=== PATIENT | female | born 1955 | race Caucasian/White ===

== ENCOUNTER 2017-08-16 21:30 | Inpatient (IN) | payer MEDICARE, MEDICAID ==
[~2017-08-16] VITALS: Ht 170.2 cm; Wt 90.4 kg
[~2017-08-16 21:30] MED LIST: DULO60CA44 PO; METO25 PO; MODA200T16 PO; SIMV-260 PO; TRAZ-144 PO; ZOLP10TA7 PO
[2017-08-16] MEDS ORDERED: METF500T4 PO (22:04)
[2017-08-16] MEDS ORDERED: LISI-660 PO (22:04)
[2017-08-16] MEDS ORDERED: CARV12 PO (22:04)
[2017-08-16 23:22] LABS: GLUCOSE,POINT OF CARE 151 MG/DL (70-110)
[2017-08-16 23:39] LABS: BASOPHILS % (AUTO) 0.3 % (0.0-2.0); EOSINOPHILS % (AUTO) 3.8 % (1.0-6.0); HEMOGLOBIN 13.6 g/dL (12.0-16.0); LYMPHOCYTES # (AUTO) 2.7 K/uL (1.0-4.8); LYMPHOCYTES % (AUTO) 24.1 % (22.0-44.0); MEAN CORPUSCULAR HEMOGLOBIN 29.8 pg (26.0-34.0); MEAN CORPUSCULAR HGB CONC 33.2 G/dL (31.0-37.0); MEAN CORPUSCULAR VOLUME 90 fL (80-100); MONOCYTES # (AUTO) 0.5 K/uL (0.1-1.0); MONOCYTES % (AUTO) 4.5 % (2.0-9.0); NEUTROPHILS # (AUTO) 7.6 K/uL (1.8-7.7); NEUTROPHILS % (AUTO) 67.3 % (40.0-70.0); PLATELET COUNT (AUTO) 438 K/uL (150-450); RED BLOOD CELL COUNT(AUTO) 4.57 MIL/uL (4.00-5.20); RED CELL DISTRIBUTION WIDTH 14.3 % (11.5-14.5)
[2017-08-16 23:52] LABS: ANION GAP 7 mmol/L (8-16); CALCIUM, TOTAL 9.2 mg/dL (8.8-10.5); CARBON DIOXIDE 32 mmol/L (22-29); CHLORIDE 100 mmol/L (98-107); CREATININE 1.27 mg/dL (0.60-1.30); GLOMERULAR FILTR. RATE CALC 43 mL/min (>60); GLUCOSE,RANDOM 144 mg/dL (70-110); POTASSIUM 4.3 mmol/L (3.5-5.1); SODIUM SERUM 139 mmol/L (136-145); UREA NITROGEN, BLOOD 29 mg/dL (7-18)
[2017-08-16 23:56] LABS: ALANINE AMINOTRANSFERASE 33 U/L (12-78); ALKALINE PHOSPHATASE 108 U/L (46-116); ASPARTATE AMINOTRANSFERASE 20 U/L (15-37); BILIRUBIN,TOTAL 0.3 mg/dL (0.1-1.0); TOTAL PROTEIN, SERUM 8.1 g/dL (6.4-8.2)
[2017-08-17] MEDS ORDERED: HALOPERIDOL LACTATE 5 MG/ML VIAL IM ONE (02:00)
[2017-08-17] MEDS ORDERED: DiphenhydrAMINE HCL 50 MG/ML VIAL IM ONE (02:00)
[2017-08-17] MEDS ORDERED: LORazepam 2 MG/ML VIAL IM ONE (02:00)
[2017-08-17 05:32] LABS: AMPHET/METH SCREEN,URINE NEGATIVE (NEGATIVE); BARBITURATE SCREEN, URINE NEGATIVE (NEGATIVE); BENZODIAZEPINES SCREEN,URINE NEGATIVE (NEGATIVE); CANNABINOID SCREEN,URINE NEGATIVE (NEGATIVE); COCAINE SCREEN,URINE NEGATIVE (NEGATIVE); METHADONE SCREEN, URINE NEGATIVE (NEGATIVE); OPIATE SCREEN,URINE NEGATIVE (NEGATIVE)
[2017-08-17 05:33] LABS: PHENCYCLIDINE SCREEN,URINE NEGATIVE (NEGATIVE)
[2017-08-17] MEDS ORDERED: LORazepam 2 MG TABLET PO PRN (09:30)
[2017-08-17] MEDS ORDERED: ZOLPIDEM TARTRATE 10 MG TABLET PO PRN (09:30)
[2017-08-17] MEDS ORDERED: HALOPERIDOL 5 MG TABLET PO PRN ×2 (09:30→09:45)
[2017-08-17 10:14] LABS: CHOL/HDL RATIO 7.1 (3.9-5.7); FREE T4 (FREE THYROXINE) 0.9 ng/dL (0.76-1.46); THYROID STIMULATING HORMONE 1.96 uIU/mL (0.36-3.74)
[2017-08-17 11:13] LABS: GLUCOMETER DEV NAME(LOC) BV2S; GLUCOSE,POINT OF CARE 118 MG/DL (70-110)
[2017-08-17 11:22] VITALS: BP 121/84
[2017-08-17] MEDS ORDERED: INFLUENZA VIRUS VACCINE QVS 2017-18 (3YR+)/PF 60 MCG/0.5 ML SYRINGE IM ONE (12:15)
[2017-08-17] MEDS ORDERED: PNEUMOCOCCAL VACCINE POLYVALENT 0.5 ML VIAL [PPSV23] IM ONE (12:15)
[2017-08-17 16:30] VITALS: BP 119/72
[2017-08-17] MEDS: LISINOPRIL 5 MG TABLET PO SCH (16:51)
[2017-08-17] MEDS: MetFORMIN HCL 500 MG TABLET PO SCH (16:51)
[2017-08-17] MEDS: CARVEDILOL 12.5 MG TABLET PO SCH (16:51)
[2017-08-17] MEDS: BACITRACIN 28.4 GM OINTMENT TP SCH (16:54)
[2017-08-17] MEDS ORDERED: IBUPROFEN 400 MG TABLET PO PRN (20:45)
[2017-08-17] MEDS: ZOLPIDEM TARTRATE 10 MG TABLET PO PRN (21:38)
[2017-08-18] VITALS (9 sets, daily range): BP systolic 106–129; BP diastolic 60–86
[2017-08-18] MEDS: MetFORMIN HCL 500 MG TABLET PO SCH ×2 (06:38→16:35)
[2017-08-18] MEDS ORDERED: MetFORMIN HCL 500 MG TABLET PO SCH (07:00)
[2017-08-18 08:19] LABS: HEMOGLOBIN A1C 6.7 % (4.5-6.2)
[2017-08-18 08:32] LABS: BASOPHILS # (AUTO) 0.02 K/uL (0.00-0.20); BASOPHILS % (AUTO) 0.3 % (0.0-2.0); EOSINOPHILS # (AUTO) 0.26 K/uL (0.00-0.70); EOSINOPHILS % (AUTO) 2.96 % (1.0-6.0); HEMATOCRIT 41.1 % (36-46); HEMOGLOBIN 13.2 g/dL (12.0-16.0); LYMPHOCYTES # (AUTO) 1.5 K/uL (1.0-4.8); LYMPHOCYTES % (AUTO) 17.5 % (22.0-44.0); MEAN CORPUSCULAR HEMOGLOBIN 29.3 pg (26.0-34.0); MEAN CORPUSCULAR HGB CONC 32.2 G/dL (31.0-37.0); MEAN CORPUSCULAR VOLUME 91 fL (80-100); MONOCYTES # (AUTO) 0.2 K/uL (0.1-1.0); MONOCYTES % (AUTO) 2.8 % (2.0-9.0); NEUTROPHILS # (AUTO) 6.7 K/uL (1.8-7.7); NEUTROPHILS % (AUTO) 76.5 % (40.0-70.0); PLATELET COUNT (AUTO) 355 K/uL (150-450); RED BLOOD CELL COUNT(AUTO) 4.52 MIL/uL (4.00-5.20); RED CELL DISTRIBUTION WIDTH 14.2 % (11.5-14.5)
[2017-08-18 08:34] LABS: ALANINE AMINOTRANSFERASE 32 U/L (12-78); ALBUMIN 3.5 g/dL (3.4-5.0); ALKALINE PHOSPHATASE 103 U/L (46-116); ANION GAP 11 mmol/L (8-16); ASPARTATE AMINOTRANSFERASE 20 U/L (15-37); BILIRUBIN,TOTAL 0.4 mg/dL (0.1-1.0); CALCIUM, TOTAL 9.1 mg/dL (8.8-10.5); CARBON DIOXIDE 30 mmol/L (22-29); CHLORIDE 100 mmol/L (98-107); CHOL/HDL RATIO 8.2 (3.9-5.7); CHOLESTEROL 270 mg/dL (131-200); CREATININE 0.89 mg/dL (0.60-1.30); GLOMERULAR FILTR. RATE CALC > 60 mL/min (>60); GLUCOSE,RANDOM 132 mg/dL (70-110); HDL CHOLESTEROL 33 mg/dL (40-60); POTASSIUM 3.9 mmol/L (3.5-5.1); SODIUM SERUM 141 mmol/L (136-145); TOTAL PROTEIN, SERUM 7.5 g/dL (6.4-8.2); TRIGLYCERIDES 218 mg/dL (15-150); UREA NITROGEN, BLOOD 26 mg/dL (7-18)
[2017-08-18 08:35] LABS: FREE T4 (FREE THYROXINE) 0.95 ng/dL (0.76-1.46); LDL CHOL (CALC.) 193 mg/dL (0-130); THYROID STIMULATING HORMONE 0.95 uIU/mL (0.36-3.74)
[2017-08-18] MEDS: CARVEDILOL 12.5 MG TABLET PO SCH ×2 (09:00→16:35)
[2017-08-18] MEDS ORDERED: LISINOPRIL 5 MG TABLET PO SCH (09:00)
[2017-08-18] MEDS: BACITRACIN 28.4 GM OINTMENT TP SCH ×2 (09:00→16:36)
[2017-08-18] MEDS: LISINOPRIL 5 MG TABLET PO SCH ×2 (09:00→16:35)
[2017-08-18] MEDS: LORazepam 2 MG TABLET PO PRN ×2 (10:27→14:45)
[2017-08-18] MEDS: NICOTINE 21 MG/24 HOUR PATCH TD SCH (11:20)
[2017-08-18] MEDS ORDERED: PROMETHAZINE HCL 25 MG/ML VIAL IM PRN (16:45)
[2017-08-18] MEDS ORDERED: LOPERAMIDE HCL 2 MG CAPSULE PO PRN (16:45)
[2017-08-18] MEDS ORDERED: FOLIC ACID 1 MG TABLET PO SCH (16:45)
[2017-08-18] MEDS ORDERED: CYANOCOBALAMIN 1,000 MCG/ML VIAL IM ONE (16:45)
[2017-08-18] MEDS ORDERED: IBUPROFEN 600 MG TABLET PO PRN (16:45)
[2017-08-18] MEDS ORDERED: GuaiFENesin/D-METHORPHAN [SUGAR-FREE] 200-20MG/10 ML SYRUP UDCUP PO PRN (16:45)
[2017-08-18] MEDS ORDERED: MAG HYDROX/AL HYDROX/SIMETH ES 30 ML SUSPENSION UDCUP PO PRN (16:45)
[2017-08-18] MEDS ORDERED: CloNIDine HCL 0.1 MG TABLET PO PRN (16:45)
[2017-08-18] MEDS ORDERED: HydrOXYzine PAMOATE 50 MG CAPSULE PO PRN ×2 (16:45)
[2017-08-18] MEDS ORDERED: THIAMINE HCL 100 MG TABLET PO SCH (17:00)
[2017-08-18] MEDS ORDERED: CloNIDine HCL 0.1 MG TABLET PO SCH (17:00)
[2017-08-18] MEDS: MULTIVITAMINS WITH MINERALS, THERAPEUTIC TABLET PO SCH (17:51)
[2017-08-18] MEDS: TraZODone HCL 50 MG TABLET PO SCH (20:59)
[2017-08-18] MEDS: ZOLPIDEM TARTRATE 10 MG TABLET PO PRN (21:15)
[2017-08-19] VITALS (9 sets, daily range): BP systolic 114–125; BP diastolic 60–87
[2017-08-19] MEDS: LORazepam 2 MG TABLET PO PRN ×3 (05:12→14:30)
[2017-08-19] MEDS: MetFORMIN HCL 500 MG TABLET PO SCH ×2 (07:00→16:41)
[2017-08-19] MEDS: CARVEDILOL 12.5 MG TABLET PO SCH ×2 (09:13→16:41)
[2017-08-19] MEDS: MULTIVITAMINS WITH MINERALS, THERAPEUTIC TABLET PO SCH (09:14)
[2017-08-19] MEDS: LISINOPRIL 5 MG TABLET PO SCH ×2 (09:14→16:41)
[2017-08-19] MEDS: DULoxetine HCL 60 MG CAPSULE PO SCH (09:14)
[2017-08-19] MEDS: BUPRENORPHINE HCL/NALOXONE HCL 2-0.5 MG SUBLINGUAL TABLET SL SCH (09:15)
[2017-08-19] MEDS: NICOTINE 21 MG/24 HOUR PATCH TD SCH (09:17)
[2017-08-19] MEDS: BACITRACIN 28.4 GM OINTMENT TP SCH ×2 (09:17→16:41)
[2017-08-19] MEDS: ACETAMINOPHEN 325 MG TABLET PO PRN (14:30)
[2017-08-19] MEDS: TraZODone HCL 50 MG TABLET PO SCH (20:35)
[2017-08-19] MEDS: ZOLPIDEM TARTRATE 10 MG TABLET PO PRN (21:15)
[2017-08-20 02:17] VITALS: BP 110/63
[2017-08-20 02:18] VITALS: BP 110/63
[2017-08-20] MEDS: LORazepam 2 MG TABLET PO PRN ×2 (03:46→09:57)
[2017-08-20] MEDS: MetFORMIN HCL 500 MG TABLET PO SCH (06:36)
[2017-08-20 07:08] VITALS: BP 114/70
[2017-08-20] MEDS: ACETAMINOPHEN 325 MG TABLET PO PRN (07:08)
[2017-08-20] MEDS: LISINOPRIL 5 MG TABLET PO SCH (08:17)
[2017-08-20] MEDS: DULoxetine HCL 60 MG CAPSULE PO SCH (08:17)
[2017-08-20] MEDS: BUPRENORPHINE HCL/NALOXONE HCL 2-0.5 MG SUBLINGUAL TABLET SL SCH (08:17)
[2017-08-20] MEDS: BACITRACIN 28.4 GM OINTMENT TP SCH (08:18)
[2017-08-20] MEDS: CARVEDILOL 12.5 MG TABLET PO SCH (08:18)
[2017-08-20] MEDS: MULTIVITAMINS WITH MINERALS, THERAPEUTIC TABLET PO SCH (08:18)
[2017-08-20] MEDS: NICOTINE 21 MG/24 HOUR PATCH TD SCH (08:18)
[2017-08-20 09:02] VITALS: BP 117/73
[2017-08-20] MEDS ORDERED: BUPR1FIL SL (11:40)
== END 2017-08-20 12:05 | disposition home or self-care (01) | DRG 885 ==
LOC: EMS 21:32 → B2X 08-17 09:23
PROVIDERS: ADMIT Psychiatry & Neurology Psychiatry; ATTEND Psychiatry & Neurology Psychiatry
DX: F31.9 Bipolar disorder, unspecified (principal); F22 Delusional disorders; E11.9 Type 2 diabetes mellitus without complications; E03.9 Hypothyroidism, unspecified; F19.10 Other psychoactive substance abuse, uncomplicated; E78.5 Hyperlipidemia, unspecified; D64.9 Anemia, unspecified; J44.9 Chronic obstructive pulmonary disease, unspecified; I10 Essential (primary) hypertension; K21.9 Gastro-esophageal reflux disease without esophagitis; M19.90 Unspecified osteoarthritis, unspecified site; Z79.899 Other long term (current) drug therapy; Z71.89 Other specified counseling
CPT/HCPCS: 82962; 83036; 84439; 84443; 96372; 99285; G0480; J1200; J1630; J2060; J3420

== ENCOUNTER → 2021-09-24 | Outpatient (CLI) | payer MEDICARE, OTHER ==
[~2021-09-24] MED LIST changes: +BUPR1FIL SL; +CARV12 PO; -DULO60CA44 PO; +DULO60CA98 PO; +LISI-892 PO; +METF-1211 PO; -METO25 PO; -MODA200T16 PO; -SIMV-260 PO; -TRAZ-144 PO; +TRAZ-184 PO; -ZOLP10TA7 PO
[2021-09-24 15:40] LABS: HEMOGLOBIN A1C 8.8 % (3.8-5.6)
[2021-09-24 15:58] LABS: CHOL/HDL RATIO 9.2 (3.9-5.7)
== END | disposition home or self-care (01) ==
LOC: LABMN 11:14
PROVIDERS: ATTEND Psychiatry & Neurology Psychiatry
DX: F31.5 Bipolar disorder, current episode depressed, severe, with psychotic features (principal); Z79.899 Other long term (current) drug therapy
CPT/HCPCS: 80061; 82947; 83036

== ENCOUNTER → 2022-12-11 | Outpatient (CLI) | payer OTHER ==
[~2022-12-11] MED LIST changes: +DULO-113 PO; -DULO60CA98 PO
[2022-12-11 18:42] LABS: HEMOGLOBIN A1C 6.9 % (3.8-5.6)
[2022-12-11 18:51] LABS: CHOL/HDL RATIO 4.1 (3.9-5.7)
== END | disposition home or self-care (01) ==
LOC: LABMN 13:18
PROVIDERS: ATTEND Psychiatry & Neurology Psychiatry
DX: F31.32 Bipolar disorder, current episode depressed, moderate (principal); Z79.899 Other long term (current) drug therapy
CPT/HCPCS: 80061; 82947; 83036